=== PATIENT | male | born 2005 | race African-American/Black ===

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

== ENCOUNTER 2023-03-02 16:45 | Emergency (ER) | payer SELFPAY ==
[~2023-03-02] VITALS: Ht 188 cm; Wt 76.0 kg
[~2023-03-02 16:45] MED LIST: ACETAMINOPHEN500 MG PO; IBUPROFEN IB200 MG PO
[2023-03-02] MEDS ORDERED: IBUPROFEN 600 MG TAB PO STA (17:54)
[2023-03-02] MEDS ORDERED: ONDANSETRON HCL 4 MG ORAL DISINTEGRATING TAB ONE (17:55)
[2023-03-02] MEDS ORDERED: ONDANSETRON ODT4 MG PO (17:57)
[2023-03-02] MEDS ORDERED: IBUPROFEN600 MG PO (17:58)
[2023-03-02] MEDS ORDERED: ACETAMINOPHEN 325 MG TAB PO ONE (18:00)
[2023-03-02] MEDS ORDERED: CLARITIN-D 121 EACH PO (18:00)
[2023-03-02] MEDS ORDERED: FLONASE ALLERG9.9 ML INH (18:02)
[2023-03-02] MEDS ORDERED: ONDANSETRON HCL 4 MG ORAL DISINTEGRATING TAB PO ONE (18:15)
[2023-03-02 18:25] VITALS: O2SAT 100
== END 2023-03-02 18:25 | disposition home or self-care (01) ==
LOC: FSED 16:54
DX: R51.9 Headache, unspecified (principal); J06.9 Acute upper respiratory infection, unspecified; R09.81 Nasal congestion; R11.0 Nausea
CPT/HCPCS: 99283; Q0162